=== PATIENT | female | born 1965 | race Two or more races ===

== ENCOUNTER 2023-12-31 08:20 | Emergency (ER) | payer SELFPAY ==
[2023-12-31] MEDS: Ketorolac 30 MG/ML SDV IM ONE (09:06)
[2023-12-31 09:27] LABS: HEMATOCRIT 43.7 % (37.0-47.0); HEMOGLOBIN 14.9 g/dL (12.0-16.0); MEAN CORPUSCULAR HGB CONC 34.1 g/dL (32.0-36.0); PLATELET COUNT,PLT 238 K/uL (150-400); WHITE BLOOD CELL COUNT,WBC 7.49 K/uL (3.9-11.3)
[2023-12-31 09:38] LABS: APPEARANCE,URINE CLEAR; BILIRUBIN,URINE NEGATIVE (NEGATIVE); COLOR,URINE YELLOW; GLUCOSE,URINE NEGATIVE (NEGATIVE); KETONES,URINE NEGATIVE (NEGATIVE); LEUKOCYTE ESTERASE,URINE NEGATIVE (NEGATIVE); NITRITE,URINE NEGATIVE (NEGATIVE); OCCULT BLOOD,URINE TRACE-INTACT (NEGATIVE); PROTEIN,URINE NEGATIVE (NEGATIVE); UROBILINOGEN,URINE 0.2 EU/dL (<2.0)
[2023-12-31 09:50] LABS: A/G RATIO 1.1 (0.9-1.6); ALBUMIN 3.6 g/dL (3.4-5.0); BILIRUBIN TOTAL 0.7 mg/dL (0.2-1.0); CALCIUM 8.6 mg/dL (8.5-10.1); CARBON DIOXIDE,CO2 27.3 mmol/L (21.0-32.0); CREATININE 0.7 mg/dL (0.6-1.0); EST CRCL DRUG DOSING (CG) 83.01 mL/min
[2023-12-31 09:59] LABS: BACTERIA,URINE NOT SEEN (NEGATIVE); EPITHELIAL CELLS,URINE OCCASIONAL (NONE-FEW); MUCUS,URINE LIGHT (NONE-MOD); RBC,URINE 0-2 (0-2/HPF); WBC,URINE 0-1 (0-5/HPF)
== END 2023-12-31 10:54 | disposition home or self-care (01) ==
LOC: MW.ED 08:20
DX: N81.10 Cystocele, unspecified (principal); M54.41 Lumbago with sciatica, right side; F17.210 Nicotine dependence, cigarettes, uncomplicated; Z75.8 Other problems related to medical facilities and other health care
CPT/HCPCS: 36415; 80053; 81001; 85027; 96372; 99283; J1885; 99284

== ENCOUNTER 2024-09-09 11:13 | Emergency (ER) | payer SELFPAY ==
[2024-09-09] MEDS: Dexamethasone 4 MG Tab PO ONE (12:24)
== END 2024-09-09 12:29 | disposition home or self-care (01) ==
LOC: MW.ED 11:13
DX: B34.9 Viral infection, unspecified (principal); R09.81 Nasal congestion; M79.10 Myalgia, unspecified site; R19.7 Diarrhea, unspecified
CPT/HCPCS: 87428; 99284; J8540; 99283

== ENCOUNTER 2024-09-14 11:36 | Emergency (ER) | payer SELFPAY ==
[2024-09-14] MEDS: Prochlorperazine 10 MG/2 ML SDV IVPUSH ONE (16:00)
[2024-09-14] MEDS: Ketorolac 30 MG/ML SDV IVPUSH ONE (16:00)
[2024-09-14] MEDS: Orphenadrine 60 MG/2 ML Inj IV ONE (16:00)
[2024-09-14] MEDS: Sodium Chloride 0.9% 1,000 ML IV ONE (16:01)
[2024-09-14] MEDS: diphenhydrAMINE 50 MG/ML SDV IVPUSH ONE (16:01)
[2024-09-14 16:08] LABS: BASOPHILS ABSOLUTE AUTO 0.02 K/uL (0.00-0.20); BASOPHILS PERCENT AUTO 0.2 % (0.0-1.0); EOSINOPHILS ABSOLUTE AUTO 0.23 K/uL (0.00-0.45); EOSINOPHILS PERCENT AUTO 2.6 % (0.0-6.0); HEMATOCRIT 45.1 % (37.0-47.0); HEMOGLOBIN 15.1 g/dL (12.0-16.0); IMMATURE GRAN ABSOLUTE AUTO 0.04 K/uL (0.00-0.05); IMMATURE GRAN PERCENT AUTO 0.4 % (0.0-0.4); LYMPHOCYTES ABSOLUTE AUTO 3.09 K/uL (1.00-4.80); LYMPHOCYTES PERCENT AUTO 34.3 % (24.0-44.0); MEAN CORPUSCULAR HEMOGLOBIN 30.9 pg (28.0-32.0); MEAN CORPUSCULAR HGB CONC 33.5 g/dL (32.0-36.0); MEAN CORPUSCULAR VOLUME 92.4 fL (83.0-99.0); MEAN PLATELET VOLUME 9.5 fL (9.4-12.3); MONOCYTES ABSOLUTE AUTO 0.77 K/uL (0.00-0.80); MONOCYTES PERCENT AUTO 8.5 % (0.0-8.0); NEUTROPHILS ABSOLUTE AUTO 4.86 K/uL (1.80-7.70); PLATELET COUNT,PLT 266 K/uL (150-400); RED BLOOD CELL COUNT 4.88 M/uL (4.10-5.30); WHITE BLOOD CELL COUNT,WBC 9.01 K/uL (3.9-11.3)
[2024-09-14 16:32] LABS: A/G RATIO 1.1 (0.9-1.6); ALBUMIN 3.5 g/dL (3.4-5.0); BILIRUBIN TOTAL 0.4 mg/dL (0.2-1.0); CALCIUM 8.6 mg/dL (8.5-10.1); CARBON DIOXIDE,CO2 28.7 mmol/L (21.0-32.0); CREATININE 0.7 mg/dL (0.6-1.0); EST CRCL DRUG DOSING (CG) 83.01 mL/min; POTASSIUM,K 3.9 mmol/L (3.5-5.1); PROTEIN TOTAL,TP 6.7 g/dL (6.4-8.2)
[2024-09-14] MEDS: Amoxicillin/Clavulanate K 875-125 MG Tab PO ONE (18:10)
== END 2024-09-14 18:16 | disposition home or self-care (01) ==
LOC: MW.ED 11:36
DX: J32.9 Chronic sinusitis, unspecified (principal); M54.2 Cervicalgia; F17.200 Nicotine dependence, unspecified, uncomplicated; Z79.899 Other long term (current) drug therapy; Z75.3 Unavailability and inaccessibility of health-care facilities
CPT/HCPCS: 36415; 70450; 72125; 80053; 83690; 83735; 85025; 96361; 96374; 96375; 99284; A9270; J0780; J1200; J1885; J2360; J7030; 99283